=== PATIENT | female | born 1985 | race Caucasian/White ===

== ENCOUNTER 2017-05-15 13:47 | Observation (INO) | payer OTHER ==
[2017-05-15] MEDS ORDERED: NS 0.9% 1000 ML* 2,000 ML IV ONE (14:21)
[2017-05-15 14:44] LABS: Hematocrit 41 % (35-47); Hemoglobin 13.6 g/dl (12.0-16.0); Mean Corpuscular HGB Conc 33 g/dl (31-36); Mean Corpuscular Hemoglobin 32 pg (27-31); Mean Corpuscular Volume 96 fL (80-97); Mean Platelet Volume 8 um3 (7.4-10.4); Red Blood Count 4.26 10^6/ul (4.0-5.4); Red Cell Distribution Width 13 % (10.5-15); White Blood Count 11.2 10^3/ul (3.5-10.8)
[2017-05-15 15:03] LABS: ALT 11 U/L (7-52); AST 14 U/L (13-39); Alkaline Phosphatase 40 U/L (34-104); Anion Gap 7 mmol/L (2-11); BUN/Creatinine Ratio 11.1 (8-20); Blood Urea Nitrogen 11 mg/dL (6-24); C Reactive Protein 1.51 mg/L (< 5.00); CO2 Carbon Dioxide 23 mmol/L (22-32); Calcium 8.6 mg/dL (8.6-10.3); Chloride 105 mmol/L (101-111); EGFR African American 83.6 (>60); Globulin 2.6 g/dL (2-4); Glucose 165 mg/dL (70-100); Lipase < 10 U/L (11.0-82.0); Potassium 4.1 mmol/L (3.5-5.0); Sodium 135 mmol/L (133-145); Total Protein 6.6 g/dL (6.4-8.9)
[2017-05-15] MEDS ORDERED: NS 0.9% 1000 ML* 1,000 ML IV ONE (15:17)
[2017-05-15 16:08] LABS: Urine Bilirubin Negative (Negative); Urine Glucose Negative (Negative); Urine Nitrite Negative (Negative)
--- NOTE | 2017-05-15 16:17 | RAD ---
INDICATION: Seizure COMPARISON: None. TECHNIQUE: Contiguous axial sections of the brain were obtained from the skull base to the vertex without contrast. FINDINGS: The ventricles, cisterns and sulci are within normal limits. The mcdonald-white matter differentiation is adequately maintained and there is no sulcal effacement. No significant focal abnormality or mass effect is present At the posterior inferior aspect of the right temporal lobe (axial image #3 and sagittal image 21) there is focal hyperdensity asymmetric to the contralateral side. This could simply represent volume averaging with the underlying temporal bone, but in the setting of trauma subarachnoid hemorrhage is not completely excluded. No significant focal osseous abnormality is present. The visualized portion of the paranasal sinuses and mastoid air cells appear clear. IMPRESSION: Questionable focus of subarachnoid hemorrhage at the posterior inferior right temporal lobe as described above.
[2017-05-15] MEDS ORDERED: Acetaminophen TAB* 325 MG PO PRN (19:09)
[2017-05-15] MEDS ORDERED: PROCHLORPERAZINE INJ 5 MG/ML 2 ML VIAL IV PRN (19:09)
--- NOTE | 2017-05-15 19:13 | ED ---
Promise Link Thomas, scribed for Luis Farooq MD on 05/15/17 at 1532 . Syncope/Near Syncope - HPI Summary HPI Summary: The pt is a 32 y/o F BIBA c/o L-sided upper back pain s/p syncopal episode that occurred today at 14:23. The syncopal episode was unwitnessed, so she is unsure if she had seizure activity. Before the episode, the patient remembers walking to a room to fix her computer. The patient fell forward during the syncopal episode, causing abrasions to her chin and L cheek. The pain is rated 4/10. The pain is aggravated and alleviated by nothing. Per EMS, she was postictal at the scene of the episode. Pt additionally c/o erythema to chin and L cheek, generalized malaise, nausea, and night sweats (in the last few days). Pt denies LOPEZ, fevers, SOB, and dizziness. PMHx: ADD. PSHx: none. SHx: no smoking, occasional alcohol, no drugs. FHx: CA (breast), HLD. LNMP 2 weeks ago. She does not have a history of seizures. She is a student at [employer]. - History Of Current Complaint Chief Complaint: EDSeizure Time Seen by Provider: 05/15/17 14:40 Hx Obtained From: Patient, EMS Onset/Duration: Sudden Onset, Lasting Minutes - today at 14:23 Context: Unwitnessed, Loss Of Consciousness Activity At Onset: Other - walking to a room to fix her computer Associated Head Trauma: Yes Aggravating Factor(s): Nothing Alleviating Factor(s): Nothing Associated Signs And Symptoms: Diaphoresis, Other - POS: postictal state, abrasions to chin and L cheek, generalized malaise, nausea, night sweats; NEG: LOPEZ, fevers, SOB, dizziness - Allergies/Home Medications Allergies/Adverse Reactions: Allergies Allergy/AdvReac Type Severity Reaction Status Date / Time No Known Drug Allergy Allergy Unknown Verified 05/15/17 15:56 Reaction Details Home Medications: Home Medications NK [No Home Medications Reported] 05/15/17 [History Confirmed 05/15/17] PMH/Surg Hx/FS Hx/Imm Hx Previously Healthy: No Respiratory History: Denies: Hx Chronic Obstructive Pulmonary Disease (COPD) Psychiatric History: Reports: Hx Attention Deficit Hyperactivity Disorder - Surgical History Surgery Procedure, Year, and Place: none Infectious Disease History: No Infectious Disease History: Denies: Traveled Outside the [place] in Last 30 Days - Social History Alcohol Use: Occasionally Hx Substance Use: No Substance Use Type: Reports: None Hx Tobacco Use: No Smoking Status (MU): Never Smoked Tobacco Review of Systems Positive: Skin Diaphoresis - at night, Other - POS: generalized malaise. Negative: Fever Negative: Shortness Of Breath Positive: Nausea Positive: Other - POS: upper back pain Positive: Other - POS: erythema to chin and L cheek Neurological: Other - POS: syncopal episode (unwitnessed) with LOC, postictal state (per EMS); NEG: dizziness Negative: Headache All Other Systems Reviewed And Are Negative: Yes Physical Exam - Summary Physical Exam Summary: VITAL SIGNS: Reviewed. GENERAL: ~Patient is a well-developed and nourished female who is lying comfortable in the stretcher. ~Patient is not in any acute respiratory distress. HEAD AND FACE: No signs of trauma. ~No ecchymosis, hematomas or skull depressions. No sinus tenderness. EYES: PERRLA, EOMI x 2, No injected conjunctiva, no nystagmus. EARS: Hearing grossly intact. Ear canals and tympanic membranes are within normal limits. MOUTH: Oropharynx within normal limits. NECK: Supple, trachea is midline, no adenopathy, no JVD, no carotid bruit, no c- spine tenderness, neck with full ROM. CHEST: Symmetric, no tenderness at palpation LUNGS: Clear to auscultation bilaterally. No wheezing or crackles. CVS: Regular rate and rhythm, S1 and S2 present, no murmurs or gallops appreciated. ABDOMEN: There is tenderness to the L paraspinal muscles of the thoracic spine. There is no C-Spine tenderness. Soft. No signs of distention. No rebound no guarding, and no masses palpated. Bowel sounds are normal. EXTREMITIES: FROM in all major joints, no edema, no cyanosis or clubbing. NEURO: There are no meningeal signs. Alert and oriented x 3. No acute neurological deficits. Speech is normal and follows commands. SKIN: Abrasion on L cheek and mandible. Dry and warm Triage Information Reviewed: Yes Vital Signs On Initial Exam: Initial Vitals Temp Pulse Resp BP Pulse Ox 97.5 F 77 20 114/79 100 05/15/17 14:18 05/15/17 14:18 05/15/17 14:18 05/15/17 14:18 05/15/17 14:18 Vital Signs Reviewed: Yes Diagnostics - Vital Signs Vital Signs Temp Pulse Resp BP Pulse Ox 05/15/17 14:29 81 100 05/15/17 14:27 114/79 05/15/17 14:18 97.5 F 77 20 114/79 100 - Laboratory Lab Results: Lab Results 05/15/17 05/15/17 05/15/17 Range/Units 14:30 14:30 14:30 WBC 11.2 H (3.5-10.8) 10^3/ul RBC 4.26 (4.0-5.4) 10^6/ul Hgb 13.6 (12.0-16.0) g/dl Hct 41 (35-47) % MCV 96 (80-97) fL MCH 32 H (27-31) pg MCHC 33 (31-36) g/dl RDW 13 (10.5-15) % Plt Count 266 (150-450) 10^3/ul MPV 8 (7.4-10.4) um3 Neut % (Auto) 80.9 (38-83) % Lymph % (Auto) 10.9 L (25-47) % Poinsett % (Auto) 5.3 (1-9) % Eos % (Auto) 2.0 (0-6) % Baso % (Auto) 0.9 (0-2) % Absolute Neuts (auto) 9.1 H (1.5-7.7) 10^3/ul Absolute Lymphs (auto) 1.2 (1.0-4.8) 10^3/ul Absolute Monos (auto) 0.6 (0-0.8) 10^3/ul Absolute Eos (auto) 0.2 (0-0.6) 10^3/ul Absolute Basos (auto) 0.1 (0-0.2) 10^3/ul Absolute Nucleated RBC 0 10^3/ul Nucleated RBC % 0 INR (Anticoag Therapy) 0.89 (0.89-1.11) Sodium 135 (133-145) mmol/L Potassium 4.1 (3.5-5.0) mmol/L Chloride 105 (101-111) mmol/L Carbon Dioxide 23 (22-32) mmol/L Anion Gap 7 (2-11) mmol/L BUN 11 (6-24) mg/dL Creatinine 0.99 H (0.51-0.95) mg/dL Est GFR ( Amer) 83.6 (>60) Est GFR (Non-Af Amer) 65.0 (>60) BUN/Creatinine Ratio 11.1 (8-20) Glucose 165 H (70-100) mg/dL Lactic Acid (0.5-2.0) mmol/L Calcium 8.6 (8.6-10.3) mg/dL Total Bilirubin 0.40 (0.2-1.0) mg/dL AST 14 (13-39) U/L ALT 11 (7-52) U/L Alkaline Phosphatase 40 (34-104) U/L C-Reactive Protein 1.51 (< 5.00) mg/L Total Protein 6.6 (6.4-8.9) g/dL Albumin 4.0 (3.2-5.2) g/dL Globulin 2.6 (2-4) g/dL Albumin/Globulin Ratio 1.5 (1-3) Lipase < 10 L (11.0-82.0) U/L Beta HCG, Quant < 0.60 mIU/mL 05/15/17 Range/Units 14:30 WBC (3.5-10.8) 10^3/ul RBC (4.0-5.4) 10^6/ul Hgb (12.0-16.0) g/dl Hct (35-47) % MCV (80-97) fL MCH (27-31) pg MCHC (31-36) g/dl RDW (10.5-15) % Plt Count (150-450) 10^3/ul MPV (7.4-10.4) um3 Neut % (Auto) (38-83) % Lymph % (Auto) (25-47) % Poinsett % (Auto) (1-9) % Eos % (Auto) (0-6) % Baso % (Auto) (0-2) % Absolute Neuts (auto) (1.5-7.7) 10^3/ul Absolute Lymphs (auto) (1.0-4.8) 10^3/ul Absolute Monos (auto) (0-0.8) 10^3/ul Absolute Eos (auto) (0-0.6) 10^3/ul Absolute Basos (auto) (0-0.2) 10^3/ul Absolute Nucleated RBC 10^3/ul Nucleated RBC % INR (Anticoag Therapy) (0.89-1.11) Sodium (133-145) mmol/L Potassium (3.5-5.0) mmol/L Chloride (101-111) mmol/L Carbon Dioxide (22-32) mmol/L Anion Gap (2-11) mmol/L BUN (6-24) mg/dL Creatinine (0.51-0.95) mg/dL Est GFR ( Amer) (>60) Est GFR (Non-Af Amer) (>60) BUN/Creatinine Ratio (8-20) Glucose (70-100) mg/dL Lactic Acid 2.8 H* (0.5-2.0) mmol/L Calcium (8.6-10.3) mg/dL Total Bilirubin (0.2-1.0) mg/dL AST (13-39) U/L ALT (7-52) U/L Alkaline Phosphatase (34-104) U/L C-Reactive Protein (< 5.00) mg/L Total Protein (6.4-8.9) g/dL Albumin (3.2-5.2) g/dL Globulin (2-4) g/dL Albumin/Globulin Ratio (1-3) Lipase (11.0-82.0) U/L Beta HCG, Quant mIU/mL Result Diagrams: 05/15/17 14:30 05/15/17 14:30 Lab Statement: Any lab studies that have been ordered have been reviewed, and results considered in the medical decision making process. - CT CT Brain CT Interpretation: Positive (See Comments) - Questionable focus of subarachnoid hemorrhage at the posterior inferior right temporal lobe as described above. CT Interpretation Completed By: Radiologist - EKG 14:44 Cardiac Rate: NL - 80 BPM EKG Interpretation: NSR with no ST elevations. Course/Dx - Diagnoses Provider Diagnoses: Seizure - Physician Notifications Discussed Care of Patient With: Hansel Lai Time Discussed With Above Provider: 16:45 Instructed by Provider To: Other - I consulted with Dr. Lai, neurosurgery, at 17:14. He recommends that I get more history on the patient. He also states that the patient can leave if someone accompanies her, she can be discharged home, but if she is not accompanied, she should be admitted for observation. I also consulted with Dr. Nieto, hospitalist, who will admit the patient at 18: 41. Discharge - Discharge Plan Condition: Fair Disposition: ADMITTED TO [facility] Patient Education Materials: New-Onset Seizure in Adults (ED) Referrals: [facility] [Outside] - 3 Days The documentation as recorded by the Promise begum Thomas accurately reflects the service I personally performed and the decisions made by me, Luis Farooq MD.
--- NOTE | 2017-05-15 20:04 | RAD ---
INDICATION: Neck pain after a syncopal episode COMPARISON: None. TECHNIQUE: Axial source images were acquired with coronal and sagittal reformatting. FINDINGS: On the sagittal view image there is nonspecific straightening of the normal cervical lordosis. The vertebral bodies and facet joints are otherwise appropriately aligned. There is no fracture or focal bony lesion. The canal and foramina appear widely patent. The odontoid and the atlantodental interval are normal. The prevertebral soft tissues appear normal. The visualized soft tissue elements of the neck are normal. The visualized lung apices are clear. IMPRESSION: NONSPECIFIC STRAIGHTENING OF THE NORMAL CERVICAL LORDOSIS IN THIS OTHERWISE NONACUTE CT OF THE CERVICAL SPINE.
[2017-05-15] MEDS: NS 0.9% 1000 ML* 1,000 ML IV SCH (20:31)
--- NOTE | 2017-05-15 23:20 | HP ---
CC: Gas Substation Operator, Karla; Dr. Queen * HISTORY AND PHYSICAL: DATE OF ADMISSION: 05/15/17 TIME OF EVALUATION: 6:30 p.m. PRIMARY CARE PROVIDER: The patient does not have a primary care provider at this time, but she just involved in [employer]. CHIEF COMPLAINT: "I do not know what happened." HISTORY OF PRESENT ILLNESS: Ms. Corrigan is a 32-year-old lady with a past medical history of depression and ADHD that was brought in by EMS after being found unresponsive. The patient states she was in her usual state of health working on a paper and her printer was not working well so she went to one of the [employer] building and she remembers walking down at the hallway and the next thing she remembers she was on the floor propped against the wall. She denies any prodrome and remembers this person shaking her and asking her if she needed any help. The patient states that she had some "haziness" after the fall. She states that people that were passing by stopped to help. EMS was called and she could not remember her age or her address, but as the time went by she became clearer. She took her Adderall today as usual and she had 2 glasses of sangria last night , but it is not unusual for her. As per EMS report, when the EMS arrived, she was under the care of [facility] personnel. She had been found by a coworker on the floor unresponsive. The patient was conscious, but not alert per normal. She was acting both ictal and slightly confused. Vital signs were normal at that time. The patient does not remember anything else. She denies any episodes like this in the past. PAST MEDICAL HISTORY: 1. Depression. 2. ADHD. MEDICATION: 1. Wellbutrin XL 300 mg p.o. daily. 2. Adderall 5 mg 1 tablet p.o. b.i.d. The patient has been on those medications for more than 10 years. ALLERGIES: No known drug allergies. FAMILY HISTORY: Her father is of a congenital heart disease. Her mother had breast cancer. There is no history of seizures on her family. She states that her sister a "fainter," but overall is healthy. SOCIAL HISTORY: She drinks a glass of wine every night. She denies tobacco or drug use. Surrogate decision maker is her mother, Diana Barcenas, phone number . She just recently moved to [place] to attend [employer]. The patient states she is not sexually active at this time, but she is on a control pill. PHYSICAL EXAMINATION GENERAL: The patient is a young lady, sitting up in the ED stretcher, in no acute distress. VITAL SIGNS: Temperature 97.5, heart rate is 75, respiratory rate is 13, oxygen saturation is 100% on room air, blood pressure is 117/79. HEENT: Pupils are equal. Moist mucous membranes. CHEST: Breath sounds present bilaterally with no added sounds. CVS: Normal S1, S2. Regular rate and rhythm. ABDOMEN: Soft. Bowel sounds are present. EXTREMITIES: No edema. NEURO: She is alert and oriented x3. Able to move all 4 extremities. Cranial nerves II through XII are grossly intact. LABORATORY AND IMAGING DATA: The patient had a CBC that showed WBC of 11.2, hemoglobin of 13.6, hematocrit of 41, platelets of 266 with 80% neutrophils. INR was 0.89. Chemistries showed sodium of 135, potassium of 4.1, chloride of 105, bicarb of 23, BUN of 11, creatinine of 0.99, glucose of 165. Lactic acid was 2.8. LFTs are normal. HCG was less than 0.6. Urinalysis was normal. CT of the brain was officially read as a questionable focus of subarachnoid hemorrhage on the posterior inferior right temporal lobe, but this was discussed with both Neurosurgery and Neurology and both agreed that this CAT scan is normal that this finding is just a bone artifact. EKG showed normal sinus rhythm at 80 beats per minute with T-inversions in V2. T- flattening in V3. There is no prior EKG to compare. Troponins were not checked. ASSESSMENT AND PLAN: Ms. Corrigan is a 32-year-old lady with a past medical history of depression and attention deficit and hyperactivity disorder who presented to the emergency room after an episode of loss of consciousness. 1. Syncope versus seizure. The patient denies prodromes and does not remember exactly what happened. I suspect she probably had a seizure. The patient will be admitted for further evaluation. Neurology consultation was requested with Dr. Queen and he wants the patient to get the information of the people that witnessed her episode so he can call them and get more information. The patient is working on it now. She will be admitted to the telemetry floor. She is going to have an MRI and an EEG done. Wellbutrin and Adderall can both lower the seizure threshold so both medications will be held for now. She will be placed on neuro checks and seizure precautions. As she hit the left side of her face on the wall and was complaining of neck pain initially, we are going to check a CT of the cervical spine. This could also be a syncopal episode. The patient's lactic acid is slightly elevated at 2.8 suggesting dehydration. She states that she did not do anything out of the usual with her diet or drinking habits. She will receive IV rehydration and we are going to repeat her lactic acid later. As she has a family history of congenital heart disease , she is going to have an echocardiogram performed and is going to be monitored on telemetry. 2. Depression. For now, her medications are going to be on hold. 3. DVT prophylaxis. The patient has a score of 1 on the DVT Prophylaxis Risk Assessment Guide and we are going to encourage ambulation. 4. Code status is full. TIME SPENT: Approximately 60 minutes were spent with the patient interview, medical records review, physical examination to complete this admission, more than half of this time was spent [id number] with the patient in coordination of care. [id number]/[facility] #: [id number] [place]
[2017-05-16] MEDS: NS 0.9% 1000 ML* 1,000 ML IV SCH (05:53)
--- NOTE | 2017-05-16 10:33 | ECHO ---
Patient: NISHA APODACA [facility] Rec#: [id number] : 1985 Date: 05/16/2017 Age: 32y Height: 152.4 cm / 60.0 in Weight: 51.71 kg / 114.0 lbs Sex: F BSA: 1.47 Room#: 431 Admit Date#: 05/15/2017 Type: Inpatient Referring: Karli Schulz MD Reading: Peter Castillo MD Art Installer: [facility] Transthoracic Echocardiogram Indication: Syncope BP: 109/72 HR: 66 Rhythm: NSR Findings History: ADHD, ETOH use, depression. Technical Comments: The study quality is good. The study is technically limited due to patient body habitus. Completed at 0855. Left Ventricle: The left ventricular chamber size is normal. There is no left ventricular hypertrophy. Global left ventricular wall motion and contractility are within normal limits. There is normal left ventricular systolic function. The estimated ejection fraction is 55-60%. Normal left ventricular diastolic filling is observed. Left Atrium: The left atrial chamber size is normal. Right Ventricle: The right ventricular cavity size is normal. The right ventricular global systolic function is normal. Right Atrium: The right atrial cavity size is normal. Aortic Valve: The aortic valve is trileaflet. There is no evidence of aortic regurgitation. There is no evidence of aortic stenosis. Mitral Valve: The mitral valve leaflets appear normal. There is a trace of mitral regurgitation. There is no evidence of mitral stenosis. Tricuspid Valve: The tricuspid valve leaflets are normal. There is a physiologic tricuspid regurgitation. The right ventricular systolic pressure is estimated at 13 mmHg. No pulmonary hypertension is noted. There is no tricuspid stenosis. Pulmonic Valve: The pulmonic valve appears normal. There is a trace pulmonic regurgitation. There is no pulmonic stenosis. Pericardium: There is no significant pericardial effusion. Aorta: There is no dilatation of the ascending aorta. There is no dilatation of the aortic arch. There is no dilation of the aortic root. Pulmonary Artery: The main pulmonary artery appears normal. Venous: The inferior vena cava appears normal in size. There is a greater than 50% respiratory change in the inferior vena cava dimension. Summary: There was not any prior study for comparison. Echocardiogram is within normal limits. Conclusions Global left ventricular wall motion and contractility are within normal limits. The estimated ejection fraction is 55-60%. There is a trace of mitral regurgitation. There is a physiologic tricuspid regurgitation. There is a trace pulmonic regurgitation. Measurements Name Value Normal Range RVIDd (AP) 2D 2.8 cm (0.9 - 2.6) RVDdMajor (2D) 3.6 cm (2.2 - 4.4) RAd ISD 4CH 3.9 cm (3.4 - 4.9) RA (A4C)W 3.2 cm (2.9 - 4.6) IVSd (2D) 0.7 cm (0.6 - 1) LVPWd (2D) 0.8 cm (0.6 - 1) LVIDd (2D) 4.2 cm (3.6 - 5.4) LVIDs (2D) 3.2 cm - LV FS (2D) 25 % (25 - 45) Aortic Annulus 2 cm (1.4 - 2.6) Ao root diameter (2D) 3 cm (2.1 - 3.5) Ascending Ao 2.8 cm (2.1 - 3.4) Aortic arch 2.7 cm (1.8 - 3.4) LA dimension (AP) 2D 3 cm (2.3 - 3.8) LAd ISD 4CH 4 cm (2.9 - 5.3) LA ISD 4CH W 3.2 cm (2.5 - 4.5) Name Value Normal Range LA ESV SP 4CH (A/L) 28 ml - LA ESV SP 2CH (A/L) 53 ml - LA ESV BP (A/L) 39 ml - LA ESV BP (A/L) index 26.82 ml/m2 - LA ESV SP 4CH (MOD) 27 ml - LA ESV SP 2CH (MOD) 47 ml - Name Value Normal Range MV E-wave Vmax 0.6 m/sec - MV deceleration time 248.3 msec - MV A-wave Vmax 0.3 m/sec - MV E:A ratio 2.11 ratio - LV septal e' Vmax 0.12 m/sec - LV lateral e' Vmax 0.19 m/sec - LV E:e' septal ratio 5 ratio - LV E:e' lateral ratio 3.16 ratio - Name Value Normal Range AV Vmax 0.9 m/sec - AV VTI 17.8 cm - AV peak gradient 2.95 mmHg - AV mean gradient 1.58 mmHg - LVOT Vmax 0.79 m/sec - LVOT VTI 14.73 cm - LVOT peak gradient 2.49 mmHg - LVOT mean gradient 1.11 mmHg - KERRY Vmax 0.7 m/sec - Name Value Normal Range TR Vmax 1.6 m/sec - TR peak gradient 10 mmHg - RAP 3 mmHg - RVSP 13 mmHg - IVC diameter 1.7 cm - Name Value Normal Range PV Vmax 0.71 m/sec - PV peak gradient 2.03 mmHg - TN end-diastolic Vmax 0.67 m/sec -
--- NOTE | 2017-05-16 11:26 | RAD ---
HISTORY: Seizure COMPARISONS: Head CT dated May 15, 2017 TECHNIQUE: The following sequences were obtained of the head: Sagittal T1-weighted images, axial T2-weighted images, axial FLAIR images, axial susceptibility weighted images, axial T1-weighted images, coronal T1, T2 and FLAIR images through the mesial temporal lobes. Additionally, axial diffusion-weighted images were obtained with calculated apparent diffusion coefficients. FINDINGS: HEMORRHAGE/INFARCT: There is no hemorrhage or acute infarct. MASSES/SHIFT: There is no mass or shift. EXTRA-AXIAL SPACES/MENINGES: There are no extra-axial fluid collections. SULCI AND VENTRICLES: The sulci and ventricles are normal in size and position for the patient's stated age. CEREBRUM: There are no focal brain parenchymal abnormalities. The mesial temporal lobes are symmetric in size, architecture, and signal intensity. The collateral white matter bundles are symmetric. The mamillary bodies and temporal horns of the lateral ventricles are symmetric in size. There is no appreciable cortical dysplasia or heterotopia BRAINSTEM: There are no focal parenchymal abnormalities. CEREBELLUM: There are no focal parenchymal abnormalities. The cerebellar tonsils are normal in size and position. SELLA: The sella is normal. PINEAL: The pineal region is clear. CP ANGLE/TEMPORAL BONES: The labyrinthine structures are grossly normal. VESSELS: Normal flow-voids are noted within the visualized vertebral vasculature. DIFFUSION ABNORMALITIES: There are no diffusion abnormalities. PARANASAL SINUSES/MASTOIDS: The paranasal sinuses are clear. ORBITS: The orbits are unremarkable. BONES AND SOFT TISSUE: No bone or soft tissue abnormalities are noted. OTHER: None IMPRESSION: NORMAL BRAIN. THE MESIAL TEMPORAL LOBES ARE SYMMETRIC
[2017-05-16 14:55] VITALS: BP 113/77
--- NOTE | 2017-05-16 15:07 | CONS ---
ADDENDUM NOW INCLUDED ON THIS REPORT CONSULTATION REPORT: DATE OF CONSULT: 05/16/17 PATIENT OF: Dr. Medina. HISTORY OF PRESENT ILLNESS: This is a 32-year-old woman being evaluated for an episode of loss of consciousness that is poorly witnessed at this point. She has had no prior seizures or syncope and was walking rapidly down a clark in one of the [facility] yesterday; without warning she apparently collapsed. She found herself laying on the floor being confused. There were offices in the hallway where she was found and apparently one of the office workers had found her and gave her a name, but she does not remember the person , there is no clear witnesses. She thinks that the compliance officer heard her and came to her rather than directly seeing the event from the start, but this is not clear. She at one point said that she was laying on the floor and looking up, but she may have originally been propped up against the wall. There was no lightheadedness, visual changes, or any other symptoms prior to this. She has a history of ADHD, but denied depression. She says that the Wellbutrin that she is on has been for her ADHD and not for depression. She does not abuse any substances, did have 2 glasses of sangria the night before, but this is not unusual. When the EMS found her she was still somewhat confused and she had normal vital signs at that time. PAST SURGICAL HISTORY: There has been no surgeries. MEDICATIONS: Include: 1. Wellbutrin 300 mg p.o. daily XL and she has been on this for the past 8 years. 2. She is on Adderall 5 mg b.i.d. 3. She is on control. ALLERGIES: She has no drug allergies. FAMILY HISTORY: The father of congenital heart disease and mother had breast cancer. There is no family history for seizures. A sister has a history of fainting. PHYSICAL EXAM: Temperature 98.4, pulse 71, respirations 16, blood pressure 115/ 73. She is alert and oriented with normal speech and comprehension. Cranial nerves II through XII were intact. Fundi were benign. Motor exam revealed normal tone, strength, and coordination. Sensation intact to light touch. Reflexes 2+ and equal, downgoing toes. Neck was supple. Chest: Clear. Cardiovascular: Regular, rate, and rhythm. Abdomen soft with positive bowel sounds. DIAGNOSTIC STUDIES/LAB DATA: I reviewed her CT scan and agreed with Dr. Lai that there is no significant bleeding. She had a negative CT scan of her C-spine. She had some neck pain following her loss of consciousness but that has now resolved. She has had a transthoracic echo which is normal. She has an EEG and MRI scan that has been ordered. Labs include white count of 11.2, normal hematocrit and platelet count. Normal CMP other than lactic acid of 2.8. Normal ALT and AST. Beta hCG was negative. PLAN/RECOMMENDATIONS: I discussed with Stacy that she had an unwitnessed episode of loss of consciousness where we do not have any current details of what happened. The differential diagnosis would include a seizure versus syncope and the MRI scan can confirm even less likely causes such as dropping from a colloid cyst. Usually syncope is associated with a prodrome and the echo does not show any structural lesion that would cause her to drop without warning and she has been monitoring overnight. The most important thing is to tying to get whatever history we can get from the witnesses to see whether this is a syncopal episode or a seizure. I discussed with her in either case this sudden loss of awareness without warning, she cannot drive until we report to the [facility] and it would be a matter of many months that if she does not absolutely need to drive down. She is agreeable with this plan and she is aware even if the tests are all normal that there would be recurrent risk if this is a seizure. Wellbutrin can lower the seizure threshold, so this is stopped to decrease the chances of seizures, if this was indeed a seizure. The chance of repeat seizure will be decreased but it would still be quite possible. I discussed the risks of seizures including hurting herself with the seizure, even sudden unexplained . I discussed that treating with medication to decrease the chances of seizures, but with any one medicine there would still be a 30% chance or more of seizure recurrence if she either truly were to have epilepsy and she could have this even with all tests being normal. At this point, we are going to complete the neurological workup for seizures. She is going to try to get more history and she is not going to drive until until we report this to the [facility]. I had given her my cell phone number so that the best witness can call me directly, especially if there is a witness to the event and just did not find her after the fact. The elevated lactic acid would be more suggestive of seizure than of a syncopal episode, but it is hard to be sure. Also the fact that there was no prodrome would be more suggestive of a seizure than syncope, but again there is no way of knowing for sure at this point. I defer to Dr. Medina in terms of the full extent of a cardiac workup. I have advised Stacy to speak to her psychiatrist to let her know this has happened and Stacy has my cell phone number, so the psychiatrist can me if the psychiatrist has any questions or concerns. Stacy told me that she does not have a mood disorder but that the Wellbutrin is for treating the ADHD, she does not have to go up on the Adderall. I also discussed that the Adderall could lower seizure threshold, but this effect is usually not clinically significant, whereas the Wellbutrin has a stronger tendency to lower the seizure threshold. Thank you for sharing her case. ADDENDUM: I reviewed her MRI scan, which was normal. Her EEG showed no clearcut epileptiform potentials. There are some sharply contoured waveforms noted throughout that are of unclear etiology and I reviewed this with Dr. Faria, the epileptologist. We should take her off the Wellbutrin and then a repeat EEG showed be done in the next several weeks' time. I will be glad to see after. Please make that appointment. [id number]/[facility] #: [id number] A- [id number]/[facility] #: [id number] PA
--- NOTE | 2017-05-16 21:38 | CONS ---
CONSULTATION REPORT: * ADDENDUM: I reviewed her MRI scan, which was normal. Her EEG showed no clearcut epileptiform potentials. There are some sharply contoured waveforms noted throughout that are of unclear etiology and I reviewed this with Dr. Faria , the epileptologist. We should take her off the Wellbutrin and then a repeat EEG showed be done in the next several weeks' time. I will be glad to see after. Please make that appointment. [id number]/[facility] #: [id number] PA
--- NOTE | 2017-05-17 03:17 | EEG ---
ELECTROENCEPHALOGRAPHY: DATE OF STUDY/DICTATION: 05/16/17 - ROOM #431 PATIENT OF: Dr. Medina. CLINICAL PROBLEM: This is a 32-year-old being evaluated for an unresponsive episode to rule out seizures. MEDICINES: Include: 1. Adderall. 2. Wellbutrin. REPORT: With the patient awake, background cerebral activity consists of moderate amplitude, posterior dominant 9 to 10 Hz rhythm, which attenuates with eye opening and reappears with eye closure. The patient's sleep background consists of diffuse, irregular delta and theta activity. Throughout the tracing , there are some [id number] amplitude, sharply contoured waves appearing posteriorly, which did not appear classic for epileptiform discharges, maybe normal variant. No major asymmetries of background are noted. CLINICAL IMPRESSION: This awake and sleep EEG shows no clear-cut epileptiform potentials. There are some sharply contoured waveforms of unclear etiology. Repeat EEG off Wellbutrin is recommended for further evaluation. [id number]/[facility] #: [id number] MTDD
--- NOTE | 2017-05-17 07:13 | DS ---
CC: Dr. Queen; [facility] * DISCHARGE SUMMARY: DATE OF ADMISSION: 05/15/17 DATE OF DISCHARGE: 05/16/17 PRIMARY CARE PROVIDER: [facility]. DISCHARGE DIAGNOSES: Syncope and collapse, possible seizure. SECONDARY DIAGNOSES: 1. Depression. 2. Attention-deficit hyperactivity disorder. MEDICATIONS AT DISCHARGE: Include: 1. Adderall 5 mg 1 tablet b.i.d. 2. Wellbutrin XL 150 mg daily, to be tapered down to off as per patient's primary psychiatrist from [facility]. LABORATORY DATA AND STUDIES PERFORMED DURING THE HOSPITAL STAY: Include: The patient's urinalysis was unremarkable. The patient's transthoracic echocardiogram obtained on 05/15/17 showed global left ventricular wall motion and contractility within normal limits with EF of 55% to 60%. There was a trace mitral regurgitation and physiological tricuspid regurgitation and trace pulmonic regurgitation. C-spine CT obtained on 05/15/17, impression: "Nonspecific straightening of the normal cervical lordosis and is otherwise nonacute CT of the cervical spine." Brain MRI, impression: "Normal brain. The mesial temporal lobes are symmetric. " Brain CT, impression: "Questionable focus of subarachnoid hemorrhage in the posterior inferior right temporal lobe as described above." Please note that those findings and the CT was reviewed by both Neurology and neurosurgical senior compensation consultant and by both of the specialists that CT was reviewed as normal. Neurology consultation was performed by Dr. Queen. 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 On the day of admission, she was walking with her books on one shoulder from one facility at [place] to the other and all of a sudden she woke up propped against a wall. She said that she thought that most likely she slid down, but she also hit her head and her face, she had superficial abrasions on her chin and left cheek. There apparently were witnesses to the event, but we were unable to contact any during her hospital stay. There was also questionable postictal confusion noted. Nevertheless from just what the patient remembered, she could not recall any prodromal symptoms of dizziness, headache, weakness, pain or palpitations. The patient was observed in a telemetry monitored bed, which noted originally to be some PVCs, but on my review on the telemetry monitoring, it was motion artifact. The patient remained in sinus rhythm. She was asymptomatic throughout her hospital stay. Dr. Queen saw the patient in Neurology and an EEG was performed. From the verbal report by Dr. Queen, there were some nonepileptiform abnormalities noted on the patient's EEG. Dr. Queen recommended a repeat EEG in 3 weeks and to offer the patient to be seen by Dr. Queen in 4 weeks as outpatient. Also, an MRI obtained on the patient's brain was unremarkable as well as transthoracic echocardiogram. Dr. Queen also recommended for the patient to wean down to off of Wellbutrin. We curbsided psychiatry service and recommendation for the time being is to lower the dose to 150 mg daily from 300 mg daily for the next few days and then continue halving the dose until off. The patient stated that she has a psychiatrist in [facility] that she would like to consult in regards to that. This psychiatrist originally prescribed the medication. At this point, I prescribed for the patient several days' worth of Wellbutrin XL at 150 mg daily until the patient's psychiatrist calls the patient back in 3 days with further recommendations. PHYSICAL EXAM: At the time of discharge, blood pressure 113/77, heart rate of 65 and regular, respiratory rate 16, oxygen saturation 100% on room air, temperature 98.1. General: This is a very pleasant 32-year-old female who is in no acute distress, alert, awake and oriented x3. HEENT: Head is normocephalic. The patient has very superficial small abrasions on her left cheek and chin. Eyes: Extraocular muscles are intact. Pupils are equal and reactive to light and accommodation. Oropharynx clear. Mucosa moist. Neck: Supple. No JVD. No bruits bilaterally. Cardiovascular: Regular rate and rhythm. No murmurs. Respiratory: Clear to auscultation bilaterally. Abdomen: Soft and nontender. Bowel sounds present in all 4 quadrants. Extremities: There is no edema. Pulses are +2 bilaterally. No clubbing or cyanosis. Neuro Evaluation: Speech is clear. Cranial nerves II through XII grossly intact. Motor strength is 5/5 bilaterally. Psychiatric Evaluation: The patient is pleasant and cooperative with evaluation with no evidence of anxiety or depression. Please note that this is a short summary of the patient's hospitalization, please refer to further medical records for details. TIME SPENT: Approximately 35 minutes was spent in this patient's discharge. [id number]/[facility] #: [id number] PA
== END 2017-05-16 15:15 | disposition home or self-care (01) ==
LOC: ED 13:47 → MEDTELE 18:59
PROVIDERS: ADMIT Internal Medicine; ATTEND Internal Medicine
DX: R55 Syncope and collapse (principal); F34.1 Dysthymic disorder; F90.9 Attention-deficit hyperactivity disorder, unspecified type; I49.3 Ventricular premature depolarization; R94.01 Abnormal electroencephalogram [EEG]; R56.9 Unspecified convulsions; M54.2 Cervicalgia; I36.1 Nonrheumatic tricuspid (valve) insufficiency; Z79.899 Other long term (current) drug therapy
CPT/HCPCS: 36415; 70450; 70551; 72125; 80053; 81003; 83605; 83690; 84484; 84702; 85025; 85610; 86140; 87040; 93005; 93306; 95816; 96361; 96374; 99284; G0378; J0780